=== PATIENT | male | born 1995 | race American Indian/Alaskan Native ===

== ENCOUNTER 2021-07-28 02:40 | Emergency (ER) | payer SELFPAY ==
[2021-07-28 02:53] VITALS: BP 156/100
--- NOTE | 2021-07-28 03:54 | Emergency Department Report ---
ED Male HPI - General Chief complaint: Urogenital-Male Stated complaint: PAIN AND DISCHARGEWHEN URINATE Time Seen by Provider: 07/28/21 03:38 Source: patient Mode of arrival: Ambulatory Limitations: No Limitations - History of Present Illness Initial comments: Patient is a 25-year-old male presents emergency room with complaints of penile discharge and dysuria. Patient states symptoms started a week ago. But states symptoms are worsening. Patient states his pain is mild until he urinates is increased. Patient with urination. Patient denies fever and chills. Patient states he has multiple sexual partners. Patient states he has a new sexual partner. Patient states he sleeps with men. Patient denies recent travel. Patient denies recent international travel. Patient denies exposure to the novel coronavirus. Patient denies sick contacts. Patient denies fever and chills. Patient denies cough. Patient denies diarrhea. Patient denies coming in contact with anybody with symptoms of the novel coronavirus. Patient is not vaccinated against COVID-19. MD Complaint: penile discharge, dysuria -: Sudden Location: penis Severity: moderate Quality: burning Consistency: intermittent Improves with: rest Worsens with: urination, movement new sexual partner discharge, dysuria. denies: swelling, mass, rash, urinary retention, blood in urine, fever, nausea/vomiting, incontinence - Related Data Sexually active: Yes Previous Rx's Medication Instructions Recorded Last Taken Type Doxycycline Hyclate 100 mg PO Q12HR 10 Days #20 07/28/21 Unknown Rx tablet.dr GREENE Review of Systems ROS: Stated complaint: PAIN AND DISCHARGEWHEN URINATE Other details as noted in HPI Constitutional: denies: chills, fever Eyes: denies: eye pain, eye discharge, vision change ENT: denies: ear pain, throat pain Respiratory: denies: cough, shortness of breath, wheezing Cardiovascular: denies: chest pain, palpitations Endocrine: no symptoms reported Gastrointestinal: denies: abdominal pain, nausea, diarrhea Genitourinary: as per HPI, dysuria, discharge. denies: urgency, testicular pain, testicular mass Musculoskeletal: denies: back pain, joint swelling, arthralgia Skin: denies: rash, lesions Neurological: denies: headache, weakness, paresthesias Psychiatric: denies: anxiety, depression Hematological/Lymphatic: denies: easy bleeding, easy bruising ED Past Medical Hx - Past Medical History Previous Medical History?: Yes Hx Asthma: Yes - Surgical History Past Surgical History?: No - Family History Family history: no significant - Social History Smoking Status: Never Smoker Substance Use Type: None - Medications Home Medications: Home Medications Medication Instructions Recorded Confirmed Last Taken Type Doxycycline Hyclate 100 mg PO Q12HR 10 Days #20 07/28/21 Unknown Rx tablet. ED Physical Exam - General Limitations: No Limitations General appearance: alert, in no apparent distress - Head Head exam: Present: atraumatic, normocephalic - Eye Eye exam: Present: normal appearance - ENT ENT exam: Present: mucous membranes moist - Neck Neck exam: Present: normal inspection - Respiratory Respiratory exam: Present: normal lung sounds bilaterally. Absent: respiratory distress - Cardiovascular Cardiovascular Exam: Present: regular rate, normal rhythm. Absent: systolic m urmur, diastolic murmur, rubs, gallop - GI/Abdominal GI/Abdominal exam: Present: soft, normal bowel sounds - Rectal Rectal exam: Present: deferred - Extremities Exam Extremities exam: Present: normal inspection - Back Exam Back exam: Present: normal inspection - Neurological Exam Neurological exam: Present: alert, oriented X3 - Psychiatric Psychiatric exam: Present: normal affect, normal mood - Skin Skin exam: Present: warm, dry, intact, normal color. Absent: rash ED Course Vital Signs 07/28/21 02:48 Temperature 98.0 F Pulse Rate 96 H Respiratory 16 Rate Blood Pressure 156/100 O2 Sat by Pulse 100 Oximetry - Reevaluation(s) Reevaluation #1: Patient will be given Rocephin IM. I discussed all results and clinical findings with patient. I discussed plan of care with patient. Patient agrees with plan of care. Patient is stable for discharge. Patient will be discharged home. Patient given discharge instructions. Patient voiced understanding of discharge instructions. 07/28/21 03:58 ED Medical Decision Making - Medical Decision Making Patient is a 25-year-old male who presents emergency room with complaints of penile discharge and dysuria. Patient has had gonorrhea and chlamydia in the past. Patient states symptoms were for a week. I discussed safe sex with patient. I discussed the absence of sex until cleared by health department. Patient refused HIV prophylaxis. Patient referred to the health department for further STD evaluation. Patient does not require further emergency medical service. Patient not require inpatient service. Patient stable for discharge. Patient be discharged home after receiving a Rocephin injection. Patient given a prescription for doxycycline. I discussed all results and clinical findings with patient. I discussed plan of care with patient. Patient agrees with plan of care. Patient is stable for discharge. Patient will be discharged home. Patient given discharge instructions. Patient voiced understanding of discharge instructions. - Differential Diagnosis STD, dysuria, penile discharge. Critical care attestation.: If time is entered above; I have spent that time in minutes in the direct care of this critically ill patient, excluding procedure time. ED Disposition Clinical Impression: Penile discharge, Dysuria Disposition: HOME / SELF CARE / HOMELESS Is pt being admited?: No Does the pt Need Aspirin: No Condition: Stable Instructions: Urethritis, Adult, Safe Sex, Dysuria, Gonorrhea Test Additional Instructions: Patient to follow-up with primary care in 2 to 3 days. Patient to follow-up with health department in 2 to 3 days. Patient to rest. Patient to increase water. Patient to avoid sexual contact until cleared by health department. Patient to practice safe sex after cleared by health department. Patient to take Tylenol or ibuprofen as needed for pain. Patient to take meds as directed. Patient to return to the ER if condition worsens, changes or new symptoms arise. Prescriptions: Doxycycline Hyclate 100 mg PO Q12HR 10 Days #20 tablet. Referrals: [facility] [Outside] - 2-3 Days Time of Disposition: 04:03
[2021-07-28] MEDS ORDERED: LIDOCAINE-MPF (1%) 10 MG/1 ML VIAL 5 ML INFILTRATI ONE (03:57)
== END 2021-07-28 04:31 | disposition home or self-care (01) ==
LOC: ED 02:40
DX: R36.9 Urethral discharge, unspecified (principal); R30.0 Dysuria; J45.909 Unspecified asthma, uncomplicated; Z79.899 Other long term (current) drug therapy
CPT/HCPCS: 96372; 99282; J0696; J3490